=== PATIENT | female | born 1975 | race Caucasian/White ===

== ENCOUNTER → 2017-06-17 | Outpatient (CLI) | payer OTHER ==
[~2017-06-17] MED LIST: DEPAKOTE PO; DIVALPROEX SOD500 M1 PO; KLONOPIN1 MG PO; LATUDA40 MG PO; LATUDA80 MG PO; LITHIUM CARBON450 MG PO; ORTHO TRI-CYCL1 EAC1 PO; SEROQUEL50 MG PO; TRAZODONE HCL50 MG PO; TYLENOL WITH C1 EACH PO; WELLBUTRIN SR150 MG PO; WELLBUTRIN XL300 MG PO
== END ==
LOC: MAMMO 08:02
PROVIDERS: ATTEND Obstetrics & Gynecology
DX: Z12.31 Encounter for screening mammogram for malignant neoplasm of breast (principal)
CPT/HCPCS: 77067

== ENCOUNTER → 2018-08-26 | Outpatient (CLI) | payer OTHER ==
[~2018-08-26] MED LIST changes: +DIATRIZOATE MEGL/DIATRIZOA SOD 30 ML BTL PO ONE; +IOPAMIDOL 370 MG/ML 200 ML INFUS..BTL INJ ONE; +SODIUM CHLORIDE 0.9% 50ML 50 ML ONE
--- NOTE | 2018-08-26 13:57 | Diagnostic Imaging Report ---
EXAMINATION: CT of the abdomen and pelvis with contrast. TECHNIQUE: Spiral CT images of the abdomen and pelvis were performed from the lung bases to the lesser trochanters after the intravenous administration of 100 cc Isovue-370 and the oral administration of Gastrografin. Coronal and sagittal reformatted images were obtained. COMPARISON: Pelvic ultrasound 08/17/2018 CLINICAL HISTORY:Diverticulitis, lower abdominal pain DISCUSSION: ABDOMEN/PELVIS: LOWER THORAX:Unremarkable. HEPATOBILIARY: No focal hepatic lesions. No intra-or extrahepatic biliary ductal dilation. Small calculus in the gallbladder fundus without pericholecystic inflammation. SPLEEN: No splenomegaly. PANCREAS: No focal masses or ductal dilatation. ADRENALS: No adrenal nodules. KIDNEYS/URETERS: No hydronephrosis, stones, or solid mass lesions. PELVIC ORGANS/BLADDER: Urinary bladder is incompletely distended and poorly evaluated. Uterus is anteflexed and appears normal. Bilateral tubal ligation devices. No adnexal mass. PERITONEUM/RETROPERITONEUM: No free air or fluid. LYMPH NODES: No pelvic sidewall, retroperitoneal, or mesenteric lymphadenopathy. VESSELS: The abdominal aorta, major branch vessels, and iliac arterial systems are well-visualized and patent. Portal vein, splenic vein, and central superior mesenteric vein are patent. GI TRACT: The large bowel shows no evidence of distention or wall thickening there are a few diverticula scattered along the sigmoid colon without. Colic inflammation. The appendix is not identified and has presumably been resected. No small bowel dilatation to suggest obstruction. Stomach is grossly unremarkable. BONES AND SOFT TISSUE: No osseous destructive lesions. No focal soft tissue abnormalities. IMPRESSION: No acute intra-abdominal or pelvic CT abnormalities. Large bowel diverticulosis without findings of diverticulitis. Cholelithiasis. Signed by: Dr. Ramses Bruner M.D. on 08/26/2018 1:54 PM
== END ==
LOC: CT 11:51
PROVIDERS: ATTEND Family Medicine
DX: R10.30 Lower abdominal pain, unspecified (principal); K57.30 Diverticulosis of large intestine without perforation or abscess without bleeding; K80.20 Calculus of gallbladder without cholecystitis without obstruction
CPT/HCPCS: 74177; Q9967

== ENCOUNTER 2018-09-05 18:03 | Emergency (ER) | payer OTHER ==
[~2018-09-05] VITALS: Ht 167.6 cm; Wt 56.7 kg
[~2018-09-05 18:03] MED LIST changes: -DIATRIZOATE MEGL/DIATRIZOA SOD 30 ML BTL PO ONE; -IOPAMIDOL 370 MG/ML 200 ML INFUS..BTL INJ ONE; -SODIUM CHLORIDE 0.9% 50ML 50 ML ONE
--- OUTSIDE RECORDS SUMMARY | 2018-09-05 18:06 | XMS REPORT | Continuity of Care Document ---
Author Author Bethany hari [facility] [place] Interface Address Unknown Phone Unavailable Problems Problem Status Onset Date Classification Date Reported Comments Source Acute pelvic pain 12/21/2017 Diagnosis 12/21/2017 [facility] Acute cystitis 12/21/2017 Diagnosis 12/21/2017 [facility] Medications Medication Details Route Status Patient Instructions Ordering Provider Order Date Source 24 HR Bupropion Hydrochloride 300 MG Extended Release Oral Tablet bupropion HCl XL 300 mg 24 hr tablet, extended release Active [facility] Clonazepam 0.5 MG Oral Tablet clonazepam 0.5 mg tablet Active [facility] [place] Carbonate 300 MG Extended Release Oral Tablet lithium carbonate ER 300 mg tablet,extended release Active [facility] Lo Loestrin Fe 1 mg-10 mcg (24)/10 mcg (2) tablet Lo Loestrin Fe 1 mg-10 mcg (24)/10 mcg (2) tablet Active [facility] NITROFURANTOIN, MACROCRYSTALS 25 MG / Nitrofurantoin, Monohydrate 75 MG Oral Capsule [Macrobid] Macrobid 100 mg capsule Take 1 capsule twice a day by oral route with meals for 7 days. Active [facility] olanzapine 2.5 MG Oral Tablet olanzapine 2.5 mg tablet Active [facility] Sertraline 50 MG Oral Tablet sertraline 50 mg tablet 100 MG Active [facility] Temazepam 15 MG Oral Capsule temazepam 15 mg capsule Active [facility] tramadol hydrochloride 50 MG Oral Tablet tramadol 50 mg tablet Active [facility] Allergies, Adverse Reactions, Alerts Substance Category Reaction Severity Reaction type Status Date Reported Comments Source Immunizations Immunization Date Given Site Status Last Updated Comments Source influenza, seasonal, injectable 02/07/2015 completed [facility] influenza, seasonal, injectable 02/07/2014 completed [facility] Results Order Name Results Value Reference Range Date Interpretation Comments Source Urinalysis macro (dipstick) panel - Urine COLOR : Yellow 12/20/2017 [facility] Urinalysis macro (dipstick) panel - Urine CLARITY : Clear 12/20/2017 [facility] Urinalysis macro (dipstick) panel - Urine LEUKOCYTES : Negative 12/20/2017 [facility] Urinalysis macro (dipstick) panel - Urine NITRITES : Negative 12/20/2017 [facility] Urinalysis macro (dipstick) panel - Urine UROBILINOGEN : Normal 12/20/2017 [facility] Urinalysis macro (dipstick) panel - Urine PROTEIN : Negative 12/20/2017 [facility] Urinalysis macro (dipstick) panel - Urine pH : 5.0 12/20/2017 [facility] Urinalysis macro (dipstick) panel - Urine BLOOD : Negative 12/20/2017 [facility] Urinalysis macro (dipstick) panel - Urine SPECIFIC GRAVITY : 1.000 12/20/2017 [facility] Urinalysis macro (dipstick) panel - Urine KETONES : Negative 12/20/2017 [facility] Urinalysis macro (dipstick) panel - Urine BILIRUBIN : Negative 12/20/2017 [facility] Urinalysis macro (dipstick) panel - Urine GLUCOSE Negative 12/20/2017 [facility] Urinalysis macro (dipstick) panel - Urine COMMENTS : will send for cx 12/20/2017 [facility] Vital Signs Vital Sign Value Date Comments Source Diastolic (mm Hg) 80 12/20/2017 [facility] Height 66 12/20/2017 [facility] Systolic (mm Hg) 110 12/20/2017 [facility] Weight 150 12/20/2017 [facility] Encounters Location Location Details Encounter Type Encounter Number Reason For Visit Attending Provider ADM Date DC Date Status Source [place] - [facility] - [id number] GarciaC: [address] [place] [address], Ph. [id number] Terell Broussard 12/20/2017 [facility] Procedures Procedure Code Date Perfomer Comments Source Appendectomy [facility] Tubal Ligation [facility]
--- OUTSIDE RECORDS SUMMARY | 2018-09-05 18:06 | XMS REPORT ---
Author Author Admin, [place] Organization [facility] Address [address] [address] Phone Allergies, Adverse Reactions, Alerts Allergy Name Reaction Description Start Date Severity Status Provider No Known Allergies Radha Jason MA Conditions or Problems Problem Name Problem Code Onset Date Status Entry Date Provider Comment Standard Description Annotate Pelvic pain 625.9 Active Jovi Mcfadden MD Unspecified symptom associated with female genital organs Cervix, screening for malignant neoplasm V76.2 Active Jovi Mcfadden MD Screening for malignant neoplasms of the cervix 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.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 Jovi Mcfadden MD Special investigations and examinations - Gynecological examination Mammogram not high risk screening V76.12 Active Jovi Mcfadden MD Other screening mammogram Premenstrual dyphoric syndrome 625.4 Active Jovi Mcfadden MD Premenstrual tension syndromes Medication List Medication Instructions Start Date Stop Date Generic Name NDC Status Provider Patient Instruction LO LOESTRIN FE 1 MG-10 MCG / 10 MCG ORAL TABLET 1 pill daily po NORETHIN-ETH ESTRAD-FE BIPHAS 84128946034 Active Jovi Mcfadden MD Active SERTRALINE HCL 50 MG ORAL TABLET SERTRALINE HCL 23891312384 Active Jovi Mcfadden MD Active LITHIUM CARBONATE ER 300 MG ORAL TABLET EXTENDED RELEASE LITHIUM CARBONATE 14576566006 Active Jovi Mcfadden MD Active TRAZODONE HCL 50 MG ORAL TABLET TAKE 1 TO 2 TABELTS BY MOUTH NIGHTLY AT BEDTIME NEEDED FOR SLEEP TRAZODONE HCL 07116292349 Active Jovi Mcfadden MD Active Vital Signs Date Name Value Unit Range Description blood pressure, diastolic 83 mm[Hg] BP warren blood pressure, systolic 125 mm[Hg] BP sys height E&M 65.50 [in_us] Bdy height pulse rate E&M 96 /min Heart rate respiratory rate E&M 18 /min Resp rate temperature E&M 98.9 [degF] Body temperature weight E&M 162.20 [lb_av] Weight Measured Diagnostic Results Date Name Value Unit Range Description Lab Report: Ct, Ng, Trich vag by MARLO - Microbiology Neisseria gonorrhoeae DNA probe Negative Negative Lab Report: Ct, Ng, Trich vag by MARLO - Lab chlamydia DNA probe Negative Negative Office Visit: Annual -- Room 5 - Chemistry beta HCG, urine, semiquantitative negative Encounters Date Encounter Provider Code Facility 12:45:36 CDT Est Patient Exp Problem - 19645 Jovi Mcfadden MD CPT-46943 [facility] 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
--- OUTSIDE RECORDS SUMMARY | 2018-09-05 18:06 | XMS REPORT | Encounter Summary ---
Author Organization Unknown Address [address] [place] [id number] Phone [phone] Reason for Visit Medical Complaint Instructions 1. Acute cystitis urinalysis, dipstick urinary tract infection in women: care instructions Macrobid 100 mg capsule culture, urine 2. Acute pelvic pain pelvic pain: care instructions Discussion Note Advised F/U with PCP and if no improvement in symptoms in 2 to 3 days start antibiotic Plan of Care Reminders Provider Appointments None recorded. Lab Urinalysis, Dipstick 12/20/2017 [facility] Culture, Urine 12/20/2017 [facility] Referral None recorded. Procedures None recorded. Surgeries None recorded. Imaging None recorded. Medications Name Start Date bupropion HCl XL 300 mg 24 hr tablet, extended release clonazepam 0.5 mg tablet lithium carbonate ER 300 mg tablet,extended release Lo Loestrin Fe 1 mg-10 mcg (24)/10 mcg (2) tablet Macrobid 100 mg capsule Take 1 capsule twice a day by oral route with meals for 7 days. olanzapine 2.5 mg tablet sertraline 50 mg tablet 100 MG temazepam 15 mg capsule tramadol 50 mg tablet Medications Administered None recorded. Vitals Height Weight BMI Blood Pressure 5 ft 6 in 150 lbs 24.2 kg/m2 110/80 mm[Hg] Lab Results Date Name Specimen Result Interpretation Description Value Range Status Address 12/20/2017 Urinalysis, Dipstick Color : Yellow [facility]: [address] [place] [address] Clarity : Clear [facility]: [address] [place] [address] Leukocytes : Negative [facility]: [address] [place] [address] Nitrites : Negative [facility]: [address] [place] [address] Urobilinogen : Normal [facility]: [address] [place] [address] Protein : Negative [facility]: [address] [place] [address] Ph : 5.0 [facility]: [address] [place] [address] Blood : Negative [facility]: [address] [place] [address] Specific [place] : 1.000 [facility]: [address] [place] [address] Ketones : Negative [facility]: [facility] Bilirubin : Negative [facility]: [facility] Glucose Negative [facility]: [facility] Comments : will send for cx [facility]: [facility] Allergies Code Code System Name Reaction Severity Status Onset NKDA Problems No Known Problems Procedures Date Name Performed by Appendectomy Information not available Tubal Ligation Information not available Vaccine List Vaccine Type influenza, seasonal, injectable 02/07/2014 02/07/2015 Social History Smoking Status Never Smoker Past Encounters 12/20/2017 Acute Cystitis; Acute Pelvic Pain Terell Broussard PA-C: [address] [place] [address], Ph. History of Present Illness Nydmoq-QUP-Arycore Reported By: Patient HPI: Location: abdomen. Quality: pain, pressure. Severity: mild. Duration: constant. Onset/Timing: sudden. Context: no known exposure to STD, no prior history of STDs, sexually active, history of urine cultures/antibiotic treatment, wipes anterior to posterior, voids after intercourse. Modifying factors OTC medication. Associated Symptoms: no fever/chills, no flank pain, no jaundice, no blood in the urine, no pain during urination, no vaginal discharge, no blisters on genitals, no rash on genitals, no muscle aches, no headache, burning sensation during urination, urgency, hesitancy, urinary frequency, abdominal pain Review of Systems Basic Reported By: Patient Constitutional: Constitutional: no fever Eyes: Eyes: no eye complaints Otlb-Zmox-Cxloo-Throat: Ears: no ear complaints. Nose: no nose/sinus problems. Mouth/Throat: no sore throat, no bleeding gums, no mouth complaints, no teeth problems Cardiovascular: Cardiovascular: no chest pain, no shortness of breath, no known heart murmur Respiratory: Respiratory: no cough, no wheezing, no shortness of breath Gastrointestinal: Gastrointestinal: no vomiting / diarrhea, abdominal pain Genitourinary: Genitourinary: no discharge, dysuria, urinary urgency Musculoskeletal: Musculoskeletal: no muscle aches, no muscle weakness, no arthralgias/joint pain, no back pain Skin: Skin: no abnormal / changing mole, no jaundice, no rashes Neurologic: Neurologic: no loss of consciousness, no weakness, no numbness, no seizures, no dizziness, no headaches Physical Exam Adult Basic, Adult Female Complete Reported By: Patient Constitutional: General Appearance: healthy-appearing, well-nourished, well-developed. Level of Distress: NAD. Ambulation: ambulating normally Psychiatric: Mental Status: active and alert. Orientation: to time, to place, to person Lungs: Respiratory effort: no dyspnea, no tachypnea, no use of accessory muscles, no intercostal retractions. Auscultation: breath sounds normal Cardiovascular: Heart Auscultation: RRR, no murmurs. Pulses including femoral / pedal: normal throughout Abdomen: Bowel Sounds: normal. Inspection and Palpation: soft, non-distended, no guarding, no rebound tenderness, no masses, no CVA tenderness, suprapubic tenderness. Liver: non-tender, no hepatomegaly. Spleen: non-tender, no splenomegaly
--- OUTSIDE RECORDS SUMMARY | 2018-09-05 18:06 | XMS REPORT ---
Author Author [facility] Address Unknown Phone Unavailable Care Team Providers Care Bank Vault Custodian Name Role Phone OLAMIDE KOLB Unavailable Unavailable YENY CLARKE Unavailable Unavailable Problems This patient has no known problems. Allergies, Adverse Reactions, Alerts This patient has no known allergies or adverse reactions. Medications This patient has no known medications. Results Test Description Test Time Test Comments Text Results Atomic Results Result Comments CT ABDOMEN/PELVIS W 2018-08-26 13:49:00 [place] [address] Patient Name: MATEO LIZ MR #: [id number] : 1975 Age/Sex: 43/F Req #: [id number] Adm Physician: Ordered by: OLAMIDE KOLB MD, MD Report #: [id number] Location: CT Room/Bed: Procedure: [id number] CT/CT ABDOMEN/PELVIS W Exam Date: 08/26/18 Exam Time: 1310 REPORT STATUS: Signed EXAMINATION: CT of the abdomen and pelvis with contrast. TECHNIQUE: Spiral CT images of the abdomen and pelvis were performed from the lung bases to the lesser trochanters after the intravenous administration of 100 cc Isovue-370 and the oral administration of Gastrografin. Coronal and sagittal reformatted images were obtained. COMPARISON: Pelvic ultrasound 08/17/2018 CLINICAL HISTORY:Diverticulitis, lower abdominal pain DISCUSSION: ABDOMEN/PELVIS: LOWER THORAX:Unremarkable. HEPATOBILIARY: No focal hepatic lesions. No intra-or extrahepatic biliary ductal dilation. Small calculus in the gallbladder fundus without pericholecystic inflammation. SPLEEN: No splenomegaly. PANCREAS: No focal masses or ductal dilatation. ADRENALS: No adrenal nodules. KIDNEYS/URETERS: No hydronephrosis, stones, or solid mass lesions. PELVIC ORGANS/BLADDER: Urinary bladder is incompletely distended and poorly evaluated. Uterus is anteflexed and appears normal. Bilateral tubal ligation devices. No adnexal mass. PERITONEUM/RETROPERITONEUM: No free air or fluid. LYMPH NODES: No pelvic sidewall, retroperitoneal, or mesenteric lymphadenopathy. VESSELS: The abdominal aorta, major branch vessels, and iliac arterial systems are well-visualized and patent. Portal vein, splenic vein, and central superior mesenteric vein are patent. GI TRACT: The large bowel shows no evidence of distention or wall thickening there are a few diverticula scattered along the sigmoid colon without. Colic inflammation. The appendix is not identified and has presumably been resected. No small bowel dilatation to suggest obstruction. Stomach is grossly unremarkable. BONES AND SOFT TISSUE: No osseous destructive lesions. No focal soft tissue abnormalities. IMPRESSION: No acute intra-abdominal or pelvic CT abnormalities. Large bowel diverticulosis without findings of diverticulitis. Cholelithiasis. Signed by: Dr. Sarbjit Gandhi M.D. on 08/26/2018 1:54 PM Dictated By: SARBJIT GANDHI MD 1357 Transcribed By: CALLIE on 08/26/18 1355 COPY TO: OLAMIDE KOLB PELVIS COMPLETE NON OB 2018-08-17 10:59:00 [place] [address] Patient Name: MATEO LIZ MR #: [id number] : 1975 Age/Sex: 43/F Req #: [id number] Adm Physician: Ordered by: YENY CLARKE MD Report #: [id number] Location: US Room/Bed: Procedure: [id number] US/US PELVIS COMPLETE NON OB Exam Date: 08/17/18 Exam Time: 09 REPORT STATUS: Signed EXAMINATION: Transvaginal ultrasound. CLINICAL INDICATION: Pelvic pain COMPARISON: None DISCUSSION: Transverse and sagittal transvaginal images were obtained of the pelvis with supplemental transabdominal images. Transvaginal imaging was medically necessary to optimally evaluate the endometrium. The uterus is anteflexed and normal in size measuring 7.3 x 3.4 x 4.2 cm. The endometrial stripe is homogeneous, normal in thickness and measures 0.6 centimeters. The ovaries are poorly visualized secondary to adjacent bowel gas. No free fluid or pelvic masses are seen. IMPRESSION: Nonvisualization of the ovaries secondary to shadowing from overlying bowel gas. Unremarkable sonographic appearance of the uterus and endometrium. Signed by: Dr. Sarbjit Gandhi M.D. on 08/17/2018 11:01 AM Dictated By: SARBJIT GANDHI MD 110 Transcribed By: CALLIE on 08/17/181100 COPY TO: YENY CLARKE MD TRANSVAGINAL 2018-08-17 10:59:00 [place] [address] Patient Name: MATEO LIZ MR #: [id number] : 1975 Age/Sex: 43/F Req #: [id number] [facility] Physician: Ordered by: YENY CLARKE MD Report #: [id number] Location: Room/Bed: Procedure: [id number] US/US TRANSVAGINAL Exam Date: 08/17/18 Exam Time: 940 REPORT STATUS: Signed EXAMINATION: Transvaginal ultrasound. CLINICAL INDICAT ION: Pelvic pain COMPARISON: None DISCUSSION: Transverse and sagittal transvaginal images were obtained of the pelvis with supplemental transabdominal images. Transvaginal imaging was medically necessary to optimally evaluate the endometrium. The uterus is anteflexed and normal in size measuring 7.3 x 3.4 x 4.2 cm. The endometrial stripe is homogeneous, normal in thickness and measures 0.6 centimeters. The ovaries are poorly visualized secondary to adjacent bowel gas. No free fluid or pelvic masses are seen. IMPRESSION: Nonvisualization of the ovaries secondary to shadowing from overlying bowel gas. Unremarkable sonographic appearance of the uterus and endometrium. Signed by: Dr. Sarbjit Gandhi M.D. on 08/17/2018 11:01 AM Dictated By: SARBJIT GANDHI MD 110 Transcribed By: CALLIE on 08/17/18 110 COPY TO: YENY CLARKE MD MAMMOGRAPHY DIGITAL SCR BILAT 2018-08-17 10:54:00 [place] [address] Patient Name: MATEO LIZ MR #: [id number] : 1975 Age/Sex: 43/F Req #: [id number] Adm Physician: Ordered by: YENY CLARKE MD Report #: [id number] Location: Room/Bed: Procedure: [id number] MG/MAMMOGRAPHY DIGITAL SCR BILAT Exam Date: 08/17/18 Exam Time: 1005 REPORT STATUS: Signed #[id number] - [id number] #BILATERAL DIGITAL SCREENING MAMMOGRAM WITH CAD: 08/17/2018 CLINICAL: Routine screening. Comparison is made to exam dated: 06/17/2017 mammogram - [facility]. Current study contains 4 films. The tissue of both breasts is heterogeneously dense. This may lower the sensitivity of mammography. Current study was also evaluated with a Computer Aided Detection (CAD) system. There is a benign calcification in the right breast. No significant masses, calcifications, or other findings are seen in either breast. There has been no significant interval change. IMPRESSION: BENIGN There is no mammographic evidence of malignancy. A 1 year screening mammogram is recommended. The patient will be notified by letter of the results. Carrington huerta/anita:08/23/2018 16:15:17 Pitching Coach: Jolynn SAMUELS(R)(M), [facility] letter sent: Compared to Prior B9 Mammogram BI-RADS: 2 Benign Dictated By: CARRINGTON JOHNSON DO 1615 Transcribed By: ANITA on 08/23/18 1615 COPY TO: YNEY CLARKE MD MAMMOGRAM DIGITAL SCR [place] [address] Patient Name: MATEO LIZ MR #: [id number] : 1975 Age/Sex: 42/F Req #: [id number] Adm Physician: Ordered by: YENY CLARKE MD Report #: [id number] Location: MAMMO Room/Bed: Procedure: [id number] MG/MAMMOGRAM DIGITAL SCR BI Exam Date: 06/18/17 Exam Time: 832 REPORT STATUS: Signed #[id number] - [id number] #BILATERAL SCREENING MAMMOGRAM WITH CAD: 06/17/2017 CLINICAL: Routine screening. No prior exams were available for comparison. Current study contains 4 films. The tissue of both breasts is heterogeneously dense. This may lower the sensitivity of mammography. Current study was also evaluated with a Computer Aided Detection (CAD) system. There is benign calcification in the right breast. No significant masses, calcifications, or other findings are seen in either breast. IMPRESSION: BENIGN There is no mammographic evidence of malignancy. A 1 year screening mammogram is recommended. The patient will be notified by letter of the results. Carrington Johnson Jr., D.O. cw/:06/24/2017 12:34:11 Pitching Coach: Jolynn SAMUELS(R)(M), [facility] letter sent: Normal Exam Mammogram BI-RADS: 2 Benign Dictated By: CARRINGTON JOHNSON DO 1234 Transcribed By: ANITA on 06/24/17 1234 COPY TO: YENY CLARKE MD
[2018-09-05] MEDS ORDERED: SODIUM CHLORIDE 0.9% 1000ML 1,000 ML IV STA (18:41)
[2018-09-05 18:52] LABS: BASOPHILS # (AUTO) 0.1 (0.0-0.1); BASOPHILS % 0.5 % (0.0-1.0); EOSINOPHILS # (AUTO) 0.2 (0.0-0.4); EOSINOPHILS % 2.1 % (0.0-6.0); HEMATOCRIT 41.2 % (34.2-44.1); HEMOGLOBIN 14.7 g/dL (12.0-16.0); LYMPHOCYTES % 19.7 % (18.0-39.1); MEAN CORPUSCULAR HEMOGLOBIN 32.5 pg (28-32); MEAN CORPUSCULAR HGB CONC 35.7 g/dL (31-35); MEAN CORPUSCULAR VOLUME 91.2 fL (81-99); MONOCYTES # (AUTO) 0.7 (0.2-0.8); MONOCYTES % 7.4 % (4.4-11.3); NEUTROPHILS % 69.9 % (38.7-80.0); PLATELET COUNT 197 x10e3/uL (140-360); RED BLOOD COUNT 4.52 x10e6/uL (3.6-5.1); RED CELL DISTRIBUTION WIDTH 12.9 % (11.7-14.4)
[2018-09-05] MEDS ORDERED: DIATRIZOATE MEGL/DIATRIZOA SOD 30 ML BTL PO ONE (18:55)
[2018-09-05 18:59] LABS: INR 0.95; PARTIAL THROMBOPLASTIN TIME 27.2 seconds (23.8-35.5); PROTHROMBIN TIME 13.2 seconds (11.9-14.5)
[2018-09-05 19:08] LABS: ALANINE AMINOTRANSFERASE 19 IU/L (0-55); ALBUMIN 3.8 g/dL (3.5-5.0); ALBUMIN/GLOBULIN RATIO 1.2 (0.8-2.0); ALKALINE PHOSPHATASE 59 IU/L (40-150); ANION GAP 11.7 mmol/L (8-16); BLOOD UREA NITROGEN 5 mg/dL (7-26); BUN/CREATININE RATIO 6 (6-25); CALCIUM 9.2 mg/dL (8.4-10.2); CARBON DIOXIDE 21 mmol/L (22-29); CHLORIDE 108 mmol/L (98-107); CREATINE KINASE 23 IU/L (29-168); CREATININE, SERUM 0.84 mg/dL (0.57-1.11); EST GLOMERULAR FILTRATION RATE > 60 ML/MIN (60-); GLUCOSE 89 mg/dL (74-118); LIPASE 59 U/L (8-78); POTASSIUM 3.7 mmol/L (3.5-5.1); SODIUM 137 mmol/L (136-145)
[2018-09-05 19:19] LABS: CLARITY,URINE SL CLOUDY (CLEAR); COLOR,URINE YELLOW (YELLOW); KETONES,URINE NEGATIVE (NEGATIVE); LEUKOCYTE ESTERASE ,URINE NEGATIVE (NEGATIVE); NITRITE,URINE NEGATIVE (NEGATIVE); PROTEIN,URINE DIPSTICK NEGATIVE (NEGATIVE); URINE UROBILINOGEN 0.2 mg/dL (0.2 - 1)
[2018-09-05 19:20] LABS: AMPHETAMINES SCREEN,URINE POSITIVE (NEGATIVE); BENZODIAZEPINES SCREEN,URINE NEGATIVE (NEGATIVE); BILIRUBIN,URINE NEGATIVE (NEGATIVE); PHENCYCLIDINE SCREEN,URINE NEGATIVE (NEGATIVE); PREGNANCY TEST, URINE NEGATIVE (NEGATIVE)
[2018-09-05] MEDS ORDERED: SODIUM CHLORIDE 0.9% 50ML 50 ML ONE (19:22)
[2018-09-05] MEDS ORDERED: IOPAMIDOL 370 MG/ML 200 ML INFUS..BTL INJ ONE (19:22)
[2018-09-05 19:36] LABS: BACTERIA,URINE MANY /HPF; EPITHELIAL CELLS,URINE FEW /LPF
--- NOTE | 2018-09-05 21:16 | Diagnostic Imaging Report ---
EXAMINATION: CT of the abdomen and pelvis with contrast. TECHNIQUE: Spiral CT images of the abdomen and pelvis were performed from the lung bases to the lesser trochanters after the intravenous administration of 150 cc of Omnipaque 300 and the oral administration of Redicat. Coronal and sagittal reformatted images were obtained. COMPARISON: Abdominal CT 08/26/2018 CLINICAL HISTORY:Subacute lower abdominal pain DISCUSSION: ABDOMEN/PELVIS: LOWER THORAX:Unremarkable. HEPATOBILIARY: No focal hepatic lesions. No intra or extrahepatic biliary ductal dilation. GALLBLADDER: There are stones in the gallbladder. No wall thickening. SPLEEN: No splenomegaly. PANCREAS: No focal masses or ductal dilatation. ADRENALS: No adrenal nodules. KIDNEYS/URETERS: No hydronephrosis, stones, or solid mass lesions. PELVIC ORGANS/BLADDER: The urinary bladder is unremarkable. Normal appearance of the uterus. A 4.3 cm right adnexal cystic lesion. Bilateral tubal ligation clips. PERITONEUM/RETROPERITONEUM: Unremarkable. LYMPH NODES: No intra-abdominal, retroperitoneal, pelvic or inguinal lymphadenopathy. VESSELS: The celiac trunk,superior and inferior mesenteric and bilateral renal arteries are patent The portal, superior mesenteric and splenic veins are patent. GI TRACT: No distention or wall thickening. The appendix is not well visualized; however, no inflammatory changes are noted within the right lower quadrant. Few sigmoid diverticuli. BONES AND SOFT TISSUE: No bony destructive lesions. No soft tissue abnormalities. IMPRESSION: No acute inflammatory process to explain the patient's abdominal/pelvic pain. Additional findings: A 4.3 cm right adnexal cystic lesion is likely physiologic. Cholelithiasis without indication of cholecystitis. Diverticulosis without evidence of diverticulitis. Signed by: Franklin De La Torre MD on 09/05/2018 9:12 PM
[2018-09-05] MEDS ORDERED: SODIUM CHLORIDE 0.9% 1000ML 1,000 ML ONE (21:42)
--- NOTE | 2018-09-06 00:38 | Diagnostic Imaging Report ---
EXAM: Transvaginal Pelvic Ultrasound INDICATION: ^EVAL FOR OVARIAN TORSION, OVARIAN CYST ^Y COMPARISON: CT dated 09/05/2018 and pelvic ultrasound dated 08/17/2018 TECHNIQUE: Grayscale transverse and sagittal transvaginal images were obtained of the pelvis FINDINGS: Uterus Orientation: Normal Size: 7.2 x 4 x 4.4 cm, Normal Mass: 0.5 cm echogenic subendometrial posterior uterine body lesion, likely a lipomyoma. Cervix: Normal Endometrium: Thickness: 0.4 cm, Normal. Appearance: Homogeneous echotexture without focal thickening. Right ovary: Size: 5.8 x 2.1 x 3.8 cm Mass/Cyst: 4.4 x 2.4 x 2.3 cm cyst. Left ovary: Size: 2.4 x 2.1 x 2.2 cm Mass/Cyst: None Adnexa: Normal Cul-de-sac: No free fluid IMPRESSION: Arterial and venous flow detected in both ovaries, low likelihood of ovarian torsion. 4.4 cm simple appearing right ovarian cyst. 0.5 cm echogenic subendometrial posterior uterine body lesion, likely a lipomyoma. Signed by: Dr. Carlito Barksdale MD on 09/06/2018 12:35 AM
== END 2018-09-06 01:09 | disposition home or self-care (01) ==
LOC: ER 18:03
DX: R10.32 Left lower quadrant pain (principal); R10.31 Right lower quadrant pain; R10.2 Pelvic and perineal pain; N83.201 Unspecified ovarian cyst, right side; K57.90 Diverticulosis of intestine, part unspecified, without perforation or abscess without bleeding
CPT/HCPCS: 36415; 74177; 76830; 80053; 80307; 81001; 81025; 82550; 82553; 83690; 84484; 85025; 85610; 85730; 99284; J7030; Q9967